=== PATIENT | male | born 1980 | race Caucasian/White ===

== ENCOUNTER 2021-11-20 12:24 | Emergency (ER) | payer OTHER, MEDICAID, SELFPAY ==
[2021-11-20 12:34] VITALS: BP 114/76; PULSE 76; RESP 18; TEMP 37.4; O2SAT 96; BMI 29.6
--- NOTE | 2021-11-20 12:41 | DI.RAD.S_ITS ---
PROCEDURE: XR LUMBAR SPINE 2-3V INDICATIONS: low back pain TECHNIQUE: 2 views of the lumbar spine were acquired. COMPARISON: None. FINDINGS: Bones: 5 [id number] vertebrae are present. There is straightening of normal lumbar lordosis. Degenerative endplate changes are noted at L4-5 and L5-S1 levels. No vertebral body compression fractures. No suspicious bony lesions. Soft tissues: Overlying bowel gas pattern is normal. No suspicious soft tissue calcifications. IMPRESSION: Degenerative disc disease in lower lumbar spine. No acute compression fracture or spondylolisthesis. Dictated by: Wilver Diamond M.D. on 11/20/2021 at 13:24 Approved by: Wilver Diamond M.D. on 11/20/2021 at 13:24
--- NOTE | 2021-11-20 17:36 | ED.BACK ---
HPI - Back Pain/Injury General Chief Complaint: Back Pain/Injury Stated Complaint: Lower Back Pain Time Seen by Provider: 11/20/21 17:35 Source: patient History of Present Illness HPI Narrative: Patient is a 41-year-old male no past medical history presenting with 1 day of low back pain. He says he went to open his carranza of the car and twisted and heard something pop. He has had intense pain since then. He has no numbness tingling or weakness in his lower extremities. He has no loss of urine or bowel. He took 1x 500 mg Tylenol last night without any relief. Related Data Previous Rx's Medication Instructions Recorded methocarbamol 750 mg tablet 1,500 mg PO Q12HR #20 tab 11/20/21 Allergies Allergy/AdvReac Type Severity Reaction Status Date / Time acetaminophen [From VICODIN] Allergy Mild itching Verified 11/20/21 12:39 hydrocodone [From VICODIN] Allergy Mild itching Verified 11/20/21 12:39 Review of Systems Review of Systems Narrative: GENERAL: Denies chills,fever HEENT: Denies throat pain RESPIRATORY: Denies dyspnea, cough, wheezing CARDIOVASCULAR: Denies chest pain, palpitations GASTROINTESTINAL: Denies nausea, vomiting MUSCULOSKELETAL: See HPI SKIN: No rash, no laceration, no pruritus NEUROLOGIC: Denies weakness, dizziness, headache, numbness 8 point review of systems is negative except for those stated above and HPI Patient History Social History Smoking Status: Former smoker Smoking Status: Former smoker alcohol intake frequency: holidays/special occasions only Substance Use Type: marijuana Exam Initial Vital Signs Initial Vital Signs: Vital Signs Temperature 99.3 F 11/20/21 12:34 Pulse Rate 76 11/20/21 12:34 Respiratory Rate 18 11/20/21 12:34 Blood Pressure 114/76 11/20/21 12:34 Pulse Oximetry 96 11/20/21 12:34 GENERAL: Alert 41-year-old male appears uncomfortable CARDIOVASCULAR: peripheral pulses in tact, cap refill <2 sec RESPIRATORY: No respiratory distress, speaks in full sentences without difficulty BACK: Mild midline lumbar tenderness but more left lateral paraspinal muscle tenderness no step-offs no sign of trauma EXTREMITIES: Normal range of motion, no clubbing or edema. Neurovascularly intact NEUROLOGICAL: Cranial nerves II through XII grossly intact. Normal gait and speech. SKIN: Warm, dry, no petechiae, no rashes or lesions. Course Orders Ordered: ED Orders 11/20/21 12:41 XR lumbar spine 2-3V Stat Discontinued Medications Ketorolac Tromethamine (Ketorolac 30 Mg/Ml Vial) 30 mg IM NOW ONE Stop: 11/20/21 17:41 Last Admin: 11/20/21 17:51 Dose: 30 mg Documented by: REMBERTO Vital Signs Vital signs: Vital Signs - 8 hr 11/20/21 12:34 11/20/21 18:31 Temperature 99.3 F Pulse Rate 76 63 Respiratory Rate 18 19 Blood Pressure 114/76 93/51 L Pulse Oximetry 96 99 MDM - Back Pain/Injury Imaging Data Extremity x-ray #1: Radiologist's Impression: PROCEDURE:? XR LUMBAR SPINE 2-3V ? INDICATIONS:? low back pain ? TECHNIQUE:? 2 views of the lumbar spine were acquired.? ? COMPARISON:? None. ? FINDINGS:? ? Bones:? 5 [id number] vertebrae are present.? There is straightening of normal lumbar lordosis.? Degenerative endplate changes are noted at L4-5 and L5-S1 levels.? No vertebral body compression fractures.? No suspicious bony lesions.? ? Soft tissues:? Overlying bowel gas pattern is normal.? No suspicious soft tissue calcifications.? ? ? IMPRESSION:? Degenerative disc disease in lower lumbar spine.? No acute compression fracture or spondylolisthesis. ? ? Dictated by: Wilver Diamond M.D. on 11/20/2021 at 13:24 ? Discharge Plan Departure Patient Disposition: Home Clinical Impression: Back pain Instructions: DI for Low Back Pain Activity Restrictions/Additional Instructions: *You have been diagnosed with back pain *What to do: At this time recommend no heavy lifting or strenuous activity. Light stretching and light activity are encouraged. If you are still having pain you may require an outpatient MRI *Continue to take medications as directed Ibuprofen 800 mg every 8 hours if needed Methocarbamol 1500 mg twice a day needed for muscle spasm *Follow up with your primary care provider in 2-3 days or call [phone] *Return to ER if you should have increasing pain numbness tingling weakness of leg change in bowel or bladder habits any new, worsening or concerning symptoms Prescriptions: New methocarbamol 750 mg tablet 1,500 mg PO Q12HR Qty: 20 0RF Referrals: Jabier Dorsey MD [Primary Care Provider] -
[2021-11-20] MEDS: KETOROLAC 30 MG/ML VIAL IM (17:51)
[2021-11-20 18:31] VITALS: BP 93/51; PULSE 63; RESP 19; O2SAT 99
== END 2021-11-20 18:34 | disposition home or self-care (01) ==
PROVIDERS: Emergency Provider Emergency Medicine; PCP Family Medicine
DX: M54.50 Low back pain, unspecified (principal)
CPT/HCPCS: 72100; 96372; 99283; J1885

== ENCOUNTER 2023-04-10 19:34 | Emergency (ER) | payer OTHER, MEDICAID, SELFPAY ==
[2023-04-10 19:54] VITALS: BP 146/90; PULSE 90; RESP 16; TEMP 37.2; O2SAT 98; BMI 28.1
--- NOTE | 2023-04-10 20:02 | DI.RAD.S_ITS ---
PROCEDURE: XR HAND RT MIN 3V INDICATIONS: injury TECHNIQUE: Three views of the right hand acquired. COMPARISON: None. FINDINGS: Bones: No fractures or dislocations. Carpal bones are normally aligned. No suspicious bony lesions. Soft tissues: No suspicious soft tissue calcifications. IMPRESSION: 1. No fracture or dislocation. Dictated by: Isidro Benz M.D. on 04/10/2023 at 21:13 Approved by: Isidro Benz M.D. on 04/10/2023 at 21:13
--- NOTE | 2023-04-10 20:02 | DI.RAD.S_ITS ---
PROCEDURE: XR CHEST 2V INDICATIONS: injury/paiin TECHNIQUE: 2 views of the chest were acquired. COMPARISON: None. FINDINGS: Surgical changes and devices: None. Lungs and pleura: Lungs are clear. No pleural effusions or pneumothorax. Mediastinum: Mediastinal contours are normal. Heart size is normal. Bones and chest wall: No displaced fracture identified. No suspicious bony abnormalities. Soft tissues appear unremarkable. IMPRESSION: 1. No definite acute traumatic abnormality. Dictated by: Isidro Benz M.D. on 04/10/2023 at 21:12 Approved by: Isidro Benz M.D. on 04/10/2023 at 21:13
== END 2023-04-10 22:20 | disposition left against medical advice (07) ==
PROVIDERS: Emergency Provider Emergency Medicine; Family Provider Family Medicine; PCP Family Medicine
DX: S29.9XXA Unspecified injury of thorax, initial encounter (principal); S69.91XA Unspecified injury of right wrist, hand and finger(s), initial encounter; V29.99XA Rider (driver) (passenger) of other motorcycle injured in unspecified traffic accident, initial encounter
CPT/HCPCS: 71046; 73130; 99283